=== PATIENT | female | born 1990 | race American Indian/Alaskan Native ===

== ENCOUNTER 2018-04-17 23:12 | Emergency (ER) | payer OTHER ==
[2018-04-18 01:01] VITALS: BP 115/73
[2018-04-18] MEDS ORDERED: MOTRIN PO ONE (01:01)
[2018-04-18] MEDS ORDERED: MOTRIN ONE (01:06)
--- NOTE | 2018-04-18 06:02 | Emergency Department Report ---
ED ENT HPI - General Chief complaint: Dental/Oral Stated complaint: POSS SWOLLEN GLANDS COLD SWEAT TOOTHACHE Time Seen by Provider: 04/18/18 05:58 Source: patient Mode of arrival: Ambulatory Limitations: No Limitations - History of Present Illness Initial comments: Patient presents for infected dental cares to #16 left upper mild gum erythema same swelling no facial swelling there is jaw pain pain is 8/10 exacerbated by Palpation eating food hot and cold stimuli there is no fever no chills no throat or ear pain MD complaint: tooth pain -: week(s) (3) Severity: moderate Severity scale (0 -10): 5 Quality: aching Consistency: intermittent Improves with: NSAID Worsens with: eating, other (hot and cold stimuli ) Context- Dental: history of dental caries, poor dental care Associated Symptoms: toothache - Related Data Previous Rx's Medication Instructions Recorded Last Taken Type Amoxicillin 500 mg PO TID #30 capsule 04/18/18 Unknown Rx Chlorhexidine Mouthwash [Peridex] 15 ml MM BID #1 bottle 04/18/18 Unknown Rx traMADol [Ultram] 50 mg PO Q6HR PRN #12 tablet 04/18/18 Unknown Rx Allergies Allergy/AdvReac Type Severity Reaction Status Date / Time No Known Allergies Allergy Verified 04/18/18 01:04 ED Dental HPI - General Chief complaint: Dental/Oral Stated complaint: POSS SWOLLEN GLANDS COLD SWEAT TOOTHACHE Time Seen by Provider: 04/18/18 05:58 Source: patient Mode of arrival: Ambulatory Limitations: No Limitations - Related Data Previous Rx's Medication Instructions Recorded Last Taken Type Amoxicillin 500 mg PO TID #30 capsule 04/18/18 Unknown Rx Chlorhexidine Mouthwash [Peridex] 15 ml MM BID #1 bottle 04/18/18 Unknown Rx traMADol [Ultram] 50 mg PO Q6HR PRN #12 tablet 04/18/18 Unknown Rx Allergies Allergy/AdvReac Type Severity Reaction Status Date / Time No Known Allergies Allergy Verified 04/18/18 01:04 ED Review of Systems ROS: Stated complaint: POSS SWOLLEN GLANDS COLD SWEAT TOOTHACHE Other details as noted in HPI Constitutional: denies: chills, fever Eyes: denies: eye pain, eye discharge, vision change ENT: dental pain Respiratory: denies: cough, shortness of breath, wheezing Cardiovascular: denies: chest pain, palpitations Endocrine: no symptoms reported Gastrointestinal: denies: abdominal pain, nausea, diarrhea Genitourinary: denies: urgency, dysuria, discharge Musculoskeletal: denies: back pain, joint swelling, arthralgia Skin: denies: rash, lesions Neurological: denies: headache, weakness, paresthesias Psychiatric: denies: anxiety, depression Hematological/Lymphatic: denies: easy bleeding, easy bruising ED Past Medical Hx - Past Medical History Previous Medical History?: No - Surgical History Past Surgical History?: No - Social History Smoking Status: Never Smoker Substance Use Type: Marijuana - Medications Home Medications: Home Medications Medication Instructions Recorded Confirmed Last Taken Type Amoxicillin 500 mg PO TID #30 capsule 04/18/18 Unknown Rx Chlorhexidine Mouthwash [Peridex] 15 ml MM BID #1 bottle 04/18/18 Unknown Rx traMADol [Ultram] 50 mg PO Q6HR PRN #12 tablet 04/18/18 Unknown Rx ED Physical Exam - General Limitations: No Limitations General appearance: alert, in no apparent distress - Head Head exam: Present: atraumatic, normocephalic - Eye Eye exam: Present: normal appearance, EOMI - Expanded ENT Exam Expanded Ear exam: Present: normal external inspection (vital) Mouth exam: Present: normal external inspection. Absent: trismus Teeth exam: Present: dental caries (18), fractured tooth # (16), dental tenderness # (16) Throat exam: Positive: normal inspection. Negative: tonsillar erythema, tonsillomegaly, tonsillar exudate, R peritonsillar mass, L peritonsillar mass - Neck Neck exam: Present: normal inspection, full ROM, lymphadenopathy. Absent: thyromegaly - Respiratory Respiratory exam: Present: normal lung sounds bilaterally. Absent: respiratory distress, wheezes, stridor, chest wall tenderness - Cardiovascular Cardiovascular Exam: Present: regular rate, normal rhythm, normal heart sounds. Absent: systolic murmur, diastolic murmur, rubs, gallop - GI/Abdominal GI/Abdominal exam: Present: soft, normal bowel sounds. Absent: bruit, hernia - Rectal Rectal exam: Present: deferred - Extremities Exam Extremities exam: Present: normal inspection - Back Exam Back exam: Present: normal inspection - Neurological Exam Neurological exam: Present: alert, oriented X3 - Psychiatric Psychiatric exam: Present: normal affect, normal mood - Skin Skin exam: Present: warm ED Course Vital Signs 04/18/18 00:51 Temperature 99 F Pulse Rate 92 H Respiratory 16 Rate Blood Pressure 115/73 O2 Sat by Pulse 100 Oximetry ED Medical Decision Making - Medical Decision Making This is straightforward infected dental caries there is no focal abscess no trismus uvula remains midline no stridor no wheezing pain is relieved by NSAIDs by mouth plan prescribed same patient has Daniel will follow-up tomorrow . Patient left wrist patient verbalizes agreement and understanding the same patient DC'd to home in stable condition and was to Critical care attestation.: If time is entered above; I have spent that time in minutes in the direct care of this critically ill patient, excluding procedure time. ED Disposition Clinical Impression: Infected dental caries Disposition: DC-01 TO HOME OR SELFCARE Is pt being admited?: No Does the pt Need Aspirin: No Condition: Good Instructions: Dental Caries (ED), Toothache (ED) Prescriptions: Amoxicillin 500 mg PO TID #30 capsule Chlorhexidine Mouthwash [Peridex] 15 ml MM BID #1 bottle traMADol [Ultram] 50 mg PO Q6HR PRN #12 tablet PRN Reason: Pain Referrals: PRIMARY CARE, [Primary Care Provider] - 3-5 Days Forms: Work/School Release Form(ED) Time of Disposition: 06:15
== END 2018-04-18 06:20 | disposition home or self-care (01) ==
LOC: ED 23:12
DX: K02.9 Dental caries, unspecified (principal); F12.10 Cannabis abuse, uncomplicated
CPT/HCPCS: 99282